=== PATIENT | female | born 1970 | race Caucasian/White ===

== ENCOUNTER 2020-09-22 22:58 | Emergency (ER) | payer OTHER ==
[~2020-09-22] VITALS: Ht 162.6 cm; Wt 54.9 kg
[2020-09-22 23:06] VITALS: BP 130/86
--- NOTE | 2020-09-22 23:06 | NUR ---
TO BED AMBULATORY
[2020-09-22] MEDS ORDERED: KETOROLAC 15 MG/ML VIAL IVP ONE (23:30)
[2020-09-22] MEDS ORDERED: NACL 0.9% 1,000 ML IV ONE (23:30)
--- NOTE | 2020-09-22 23:34 | NUR ---
50/F COMPLAINING OF RIGHT SIDE ABDOMINAL PAIN RADIATING TO RIGHT FLANK 01/05. PT WITH NASUEA BUT DENIES ANY VOMITING. PT LAST BM WAS 8 DAYS AGO. PT ALSO HAD MULTIPLE HERNIA REPAIRS LAST JULY. PMH: HTN, HLD, DM, SZ, HERNIA REPAIR ALLERGY: DICOFLENAC, RIZATRIPTAN
[2020-09-22 23:38] LABS: BASOPHILS % (AUTO) 0.8 % (0.0-2.0); EOSINOPHILS # (AUTO) 0.1 K/uL (0-0.4); EOSINOPHILS % (AUTO) 2.2 % (0.0-4.0); HEMATOCRIT 37.6 % (36-48); HEMOGLOBIN 12.6 g/dL (12.0-16.0); LYMPHOCYTES # (AUTO) 2.8 K/uL (2.5-16.5); LYMPHOCYTES % (AUTO) 44.2 % (20.5-51.1); MEAN CORPUSCULAR HEMOGLOBIN 29 pg (27-31); MEAN CORPUSCULAR HGB CONC 34 g/dL (33-37); MEAN CORPUSCULAR VOLUME 86.9 fL (80-94); MONOCYTES # (AUTO) 0.7 K/uL (0.8-1.0); MONOCYTES % (AUTO) 10.4 % (1.7-9.3); NEUTROPHILS # (AUTO) 2.7 K/uL (1.8-7.7); NEUTROPHILS % (AUTO) 42.4 % (42.2-75.2); PLATELET COUNT (AUTO) 268 K/uL (140-450); RED BLOOD CELL COUNT(AUTO) 4.32 MIL/uL (4.20-5.40); RED CELL DISTRIBUTION WIDTH 13.5 % (11.6-13.7); WHITE BLOOD COUNT (AUTO) 6.3 K/uL (4.8-10.8)
--- NOTE | 2020-09-22 23:52 | NUR ---
PT TAKEN TO CT
[2020-09-22 23:54] LABS: ALBUMIN 4.3 g/dL (3.4-5.0); ANION GAP 12.5 (8-16); CARBON DIOXIDE 26.3 mmol/L (21-32); CREATININE 0.8 mg/dL (0.6-1.3); POTASSIUM 3.8 mmol/L (3.5-5.1); TOTAL BILIRUBIN 0.3 mg/dL (0.0-1.0)
--- NOTE | 2020-09-23 | NUR ---
PT BACK FROM CT
--- NOTE | 2020-09-23 00:44 | NUR ---
covering for primary RN Melvin for lunch break. pt currently laying down in high fowlers position. does not appear to be in any distress. family member at bedside.
--- NOTE | 2020-09-23 00:45 | NUR ---
ambulated to restroom to attempt to give urine specimen.
--- NOTE | 2020-09-23 01:00 | NUR ---
pt still unable to urine. Dr. Whalen made aware.
--- NOTE | 2020-09-23 01:08 | NUR ---
performed urinary straight catheterization with 8fr catheter via the sterile procedure. output of 100ml of cloudy yellow urine. pt tolerated well.
--- NOTE | 2020-09-23 01:12 | NUR ---
Licha RN at bedside for improvement specialist during urinary straight catheterization.
[2020-09-23 01:16] LABS: APPEARANCE,URINE SL CLOUDY (CLEAR); BILIRUBIN,URINE NEGATIVE (NEGATIVE); BLOOD, URINE NEGATIVE (NEGATIVE); COLOR,URINE ORANGE (YELLOW); LEUKOCYTE ESTERASE ,URINE NEGATIVE (NEGATIVE); NITRITE, URINE POSITIVE (NEGATIVE); PH,URINE 7.5 (5.0-9.0); UGLUCOSE NEGATIVE (NEGATIVE)
[2020-09-23 01:24] LABS: RBC,URINE 0-5 /HPF (0-5); WBC,URINE 0-5 /HPF (0-5)
[2020-09-23] MEDS ORDERED: CEPH-588 PO (01:45)
[2020-09-23] MEDS ORDERED: PYR100 PO (01:46)
[2020-09-23 02:06] VITALS: BP 134/71
--- NOTE | 2020-09-23 02:06 | NUR ---
Patient discharged with v/s stable. Written and verbal after care instructions given and explained. Patient alert, oriented and verbalized understanding of instructions. Ambulatory with by FAMILY. All questions addressed prior to discharge. ID band AND IV ACCESS removed. Patient advised to follow up with PMD. Rx of KEFLEX, PYRIDIUM given. Patient educated on indication of medication including possible reaction and side effects. Opportunity to ask questions provided and answered.
== END 2020-09-23 02:06 | disposition home or self-care (01) ==
LOC: MED 22:58
DX: N12 Tubulo-interstitial nephritis, not specified as acute or chronic (principal)
CPT/HCPCS: 36415; 74176; 80053; 81001; 83690; 85025; 87086; 96361; 96374; 99283; J1885; J7030

== ENCOUNTER 2021-09-01 16:04 | Emergency (ER) | payer OTHER ==
[~2021-09-01] VITALS: Ht 152.4 cm; Wt 49.9 kg
[~2021-09-01 16:04] MED LIST: CEPH-588 PO; PYR100 PO
[2021-09-01 16:19] VITALS: BP 118/51
--- NOTE | 2021-09-01 17:07 | NUR ---
C/O HEADACHE X 3 WEEKS, URINARY BURNING SENSATION,7/10 LOWER ABD PAIN , DYSURIA X 4 DAYS. LAST SEIZURE 08/05/21. BLOOD SUGAR 92 AT THIS TIME. PMH: DM, HLD, IRVING
--- NOTE | 2021-09-01 17:11 | NUR ---
Patient being evaluated by CARY WOOD at [facility].
[2021-09-01 17:12] LABS: BILIRUBIN,URINE NEGATIVE (NEGATIVE); BLOOD, URINE NEGATIVE (NEGATIVE); COLOR,URINE YELLOW (YELLOW); LEUKOCYTE ESTERASE ,URINE 1+ (NEGATIVE); NITRITE, URINE NEGATIVE (NEGATIVE); UGLUCOSE NEGATIVE (NEGATIVE)
[2021-09-01 17:15] LABS: APPEARANCE,URINE HAZY (CLEAR)
[2021-09-01 17:34] LABS: RBC,URINE NONE SEEN /HPF (0-5)
[2021-09-01] MEDS ORDERED: ACETAMINOPHEN EXTRA STRENGTH 500 MG TAB PO ONE (17:50)
[2021-09-01 18:12] LABS: BASOPHILS % (AUTO) 0.7 % (0.0-2.0); EOSINOPHILS # (AUTO) 0.1 K/uL (0-0.4); EOSINOPHILS % (AUTO) 2.1 % (0.0-4.0); HEMATOCRIT 39.6 % (36-48); LYMPHOCYTES % (AUTO) 41.1 % (20.5-51.1); MEAN CORPUSCULAR HEMOGLOBIN 29 pg (27-31); MEAN CORPUSCULAR HGB CONC 33 g/dL (33-37); MEAN CORPUSCULAR VOLUME 87.8 fL (80-94); MONOCYTES # (AUTO) 0.5 K/uL (0.8-1.0); MONOCYTES % (AUTO) 10.9 % (1.7-9.3); NEUTROPHILS # (AUTO) 2.2 K/uL (1.8-7.7); NEUTROPHILS % (AUTO) 45.2 % (42.2-75.2); PLATELET COUNT (AUTO) 307 K/uL (140-450); RED BLOOD CELL COUNT(AUTO) 4.52 MIL/uL (4.20-5.40); RED CELL DISTRIBUTION WIDTH 13.8 % (11.6-13.7); WHITE BLOOD COUNT (AUTO) 4.9 K/uL (4.8-10.8)
[2021-09-01 18:34] LABS: ALBUMIN 4.1 g/dL (3.4-5.0); ANION GAP 12.8 (8-16); CARBON DIOXIDE 25.3 mmol/L (21-32); CREATININE 0.7 mg/dL (0.6-1.3); POTASSIUM 4.1 mmol/L (3.5-5.1); TOTAL BILIRUBIN 0.4 mg/dL (0.0-1.0)
[2021-09-01] MEDS ORDERED: cephALEXin 500 MG CAP PO ONE (19:00)
--- NOTE | 2021-09-01 19:11 | NUR ---
Provider at bedside
--- NOTE | 2021-09-01 19:44 | NUR ---
PT RETURN FROM CT (CODE BRAIN). TELENEURO INTIATED PER DR. Eva TENORIO
--- NOTE | 2021-09-01 20:00 | NUR ---
ASSISTED TO BR VIA W/C. RETURNED TO BED AND MADE COMFORTABLE
[2021-09-01] MEDS ORDERED: KETOROLAC 15 MG/ML VIAL IVP ONE (20:05)
[2021-09-01] MEDS ORDERED: CEPH-588 PO (20:59)
[2021-09-01] MEDS ORDERED: ONDA-188 PO (20:59)
[2021-09-01] MEDS ORDERED: diphenhydrAMINE 50 MG/ML VIAL IVP ONE (21:00)
[2021-09-01] MEDS ORDERED: METOCLOPRAMIDE 10 MG/2 ML INJ VIAL IVP ONE (21:00)
[2021-09-01] MEDS ORDERED: DEXAMETHASONE 10 MG/ML VIAL IVP ONE (21:00)
[2021-09-01 22:00] VITALS: BP 138/84
--- NOTE | 2021-09-01 22:00 | NUR ---
Patient discharged with v/s stable. Written and verbal after care instructions given and explained. Patient verbalized understanding. Ambulatory with steady gait. All questions addressed prior to discharge. Advised to follow up with PMD.
== END 2021-09-01 22:00 | disposition home or self-care (01) ==
LOC: MED 16:04
DX: G43.909 Migraine, unspecified, not intractable, without status migrainosus (principal); N39.0 Urinary tract infection, site not specified; E11.9 Type 2 diabetes mellitus without complications; I10 Essential (primary) hypertension; E78.00 Pure hypercholesterolemia, unspecified; Z88.6 Allergy status to analgesic agent; Z88.8 Allergy status to other drugs, medicaments and biological substances
CPT/HCPCS: 36415; 70450; 70496; 70498; 80053; 81001; 85025; 87086; 96374; 96375; 99284; J1100; J1200; J1885; J2765; Q9967

== ENCOUNTER 2021-09-19 10:16 | Emergency (ER) | payer OTHER ==
[~2021-09-19] VITALS: Ht 162.6 cm; Wt 53.1 kg
[~2021-09-19 10:16] MED LIST changes: +ONDA-188 PO
[2021-09-19 10:20] VITALS: BP 126/85
[2021-09-19] MEDS: PHENAZOPYRIDINE 100 MG TAB PO ONE (11:20)
[2021-09-19] MEDS: KETOROLAC 30 MG/ML VIAL IM ONE (11:23)
[2021-09-19 11:27] LABS: BASOPHILS % (AUTO) 0.8 % (0.0-2.0); EOSINOPHILS # (AUTO) 0.1 K/uL (0-0.4); EOSINOPHILS % (AUTO) 1.6 % (0.0-4.0); HEMATOCRIT 38.3 % (36-48); HEMOGLOBIN 12.8 g/dL (12.0-16.0); LYMPHOCYTES # (AUTO) 1.6 K/uL (2.5-16.5); LYMPHOCYTES % (AUTO) 34.5 % (20.5-51.1); MEAN CORPUSCULAR HEMOGLOBIN 29 pg (27-31); MEAN CORPUSCULAR HGB CONC 33 g/dL (33-37); MEAN CORPUSCULAR VOLUME 87.8 fL (80-94); MONOCYTES # (AUTO) 0.6 K/uL (0.8-1.0); MONOCYTES % (AUTO) 11.7 % (1.7-9.3); NEUTROPHILS # (AUTO) 2.4 K/uL (1.8-7.7); NEUTROPHILS % (AUTO) 51.4 % (42.2-75.2); PLATELET COUNT (AUTO) 220 K/uL (140-450); RED BLOOD CELL COUNT(AUTO) 4.37 MIL/uL (4.20-5.40); RED CELL DISTRIBUTION WIDTH 14.4 % (11.6-13.7); WHITE BLOOD COUNT (AUTO) 4.7 K/uL (4.8-10.8)
[2021-09-19 11:38] LABS: CARBON DIOXIDE 26.5 mmol/L (21-32); CREATININE 0.9 mg/dL (0.6-1.3); POTASSIUM 4.5 mmol/L (3.5-5.1)
[2021-09-19 11:56] LABS: ALBUMIN 4.1 g/dL (3.4-5.0); TOTAL BILIRUBIN 0.3 mg/dL (0.0-1.0)
[2021-09-19 13:01] LABS: BILIRUBIN,URINE NEGATIVE (NEGATIVE); BLOOD, URINE NEGATIVE (NEGATIVE); COLOR,URINE YELLOW (YELLOW); LEUKOCYTE ESTERASE ,URINE 2+ (NEGATIVE); NITRITE, URINE POSITIVE (NEGATIVE); PH,URINE 7.5 (5.0-9.0); UGLUCOSE TRACE (NEGATIVE)
[2021-09-19 13:18] LABS: APPEARANCE,URINE HAZY (CLEAR)
[2021-09-19 13:23] LABS: RBC,URINE 0-5 /HPF (0-5); URINE AMORPHOUS URATE 1+ /HPF (None Seen)
[2021-09-19] MEDS ORDERED: PYR100 PO (13:38)
[2021-09-19] MEDS ORDERED: CEPH-588 PO (13:38)
[2021-09-19 13:55] VITALS: BP 126/85
== END 2021-09-19 13:55 | disposition home or self-care (01) ==
LOC: MED 10:16
DX: N39.0 Urinary tract infection, site not specified (principal); E11.9 Type 2 diabetes mellitus without complications; I10 Essential (primary) hypertension; Z79.899 Other long term (current) drug therapy; Z88.1 Allergy status to other antibiotic agents; Z88.8 Allergy status to other drugs, medicaments and biological substances; Z98.890 Other specified postprocedural states; Z90.710 Acquired absence of both cervix and uterus; Z86.73 Personal history of transient ischemic attack (TIA), and cerebral infarction without residual deficits
CPT/HCPCS: 36415; 80053; 81001; 85025; 87086; 96372; 99283; J1885

== ENCOUNTER 2021-09-23 14:26 | Emergency (ER) | payer OTHER ==
[~2021-09-23] VITALS: Ht 149.9 cm; Wt 52.8 kg
[2021-09-23 15:06] VITALS: BP 99/64
--- NOTE | 2021-09-23 15:10 | NUR ---
PT AMBULATED WITH ASSISTED TO BED 11.
--- NOTE | 2021-09-23 15:14 | NUR ---
Patient being evaluated by DANIELE at bedside.
--- NOTE | 2021-09-23 15:21 | NUR ---
CODE STROKE CALLED BY DR SANABRIA. CT CALLED
--- NOTE | 2021-09-23 15:27 | NUR ---
Patient taken for CT-code brain via jerri on homebirth midwife, accompanied by VALERIA Delgado and Jessica civil laboratory technician.
[2021-09-23] MEDS ORDERED: NACL 0.9% 1,000 ML IV ONE (15:30)
--- NOTE | 2021-09-23 15:35 | NUR ---
PT BACK FROM CT AND CONNECTED TO MONITOR
--- NOTE | 2021-09-23 15:40 | NUR ---
RAD AT BEDSIDE
--- NOTE | 2021-09-23 15:44 | NUR ---
CINDY MIRANDA SAMPLE COLLECTED AND HANDED TO RETAIL PRESENTATION SPECIALIST
[2021-09-23 15:54] LABS: BASOPHILS % (AUTO) 0.5 % (0.0-2.0); EOSINOPHILS # (AUTO) 0.1 K/uL (0-0.4); EOSINOPHILS % (AUTO) 2.7 % (0.0-4.0); HEMOGLOBIN 11.3 g/dL (12.0-16.0); LYMPHOCYTES # (AUTO) 2.3 K/uL (2.5-16.5); LYMPHOCYTES % (AUTO) 48.1 % (20.5-51.1); MEAN CORPUSCULAR HEMOGLOBIN 29 pg (27-31); MEAN CORPUSCULAR HGB CONC 33 g/dL (33-37); MONOCYTES # (AUTO) 0.5 K/uL (0.8-1.0); MONOCYTES % (AUTO) 10.6 % (1.7-9.3); NEUTROPHILS # (AUTO) 1.8 K/uL (1.8-7.7); NEUTROPHILS % (AUTO) 38.1 % (42.2-75.2); PLATELET COUNT (AUTO) 211 K/uL (140-450); RED BLOOD CELL COUNT(AUTO) 3.86 MIL/uL (4.20-5.40); RED CELL DISTRIBUTION WIDTH 14.4 % (11.6-13.7); WHITE BLOOD COUNT (AUTO) 4.8 K/uL (4.8-10.8)
--- NOTE | 2021-09-23 16:07 | NUR ---
51 Y/O FEMALE BIB DAUGHTER C/O GENERAL WEAKNESS, SLOWLY SPEAKING , RIGHT EYE PAIN 10/10 RADIATES TO HEAD DESCRIBES THROBBING. PT STATES PAIN AND WEAKNESS STARTED AT 7 AM TODAY. BLOOD SUGAR 86 AT THIS TIME. DENIES FEVER/CHILLS. DENIES N/V/D. PMH: HTN, HLD, DM, STROKE FEB 2021 ALLERGIES: DICLOFENAC, RIZATRIPTAN
[2021-09-23 16:12] LABS: PROTHROMBIN TIME 11.5 secs (10.8-13.4)
[2021-09-23 16:17] LABS: ALBUMIN 3.7 g/dL (3.4-5.0); ASPARTATE AMINOTRANSFERASE 26 U/L (15-37); CARBON DIOXIDE 27.8 mmol/L (21-32); CHLORIDE 101 mmol/L (98-107); CREATININE 0.6 mg/dL (0.6-1.3); GFR ARICAN-AMERICAN 135 mL/min (>90); GLUCOSE 94 mg/dL (74-106); POTASSIUM 3.8 mmol/L (3.5-5.1); SODIUM SERUM 136 mmol/L (136-145); TOTAL BILIRUBIN 0.3 mg/dL (0.0-1.0); UREA NITROGEN, BLOOD 13 mg/dL (7-18)
--- NOTE | 2021-09-23 16:36 | NUR ---
GAVE REPORT TO VALERIA GLASGOW IN [facility] FOR PENDING TRANSFER.
--- NOTE | 2021-09-23 16:37 | NUR ---
PT RESTING IN BED, VISIBLE EQUAL RISE AND FALL OF CHEST, VSS, WILL CONTINUE TO MONITOR. PT DAUGHTER AT BEDSIDE.
[2021-09-23 17:15] VITALS: BP 98/51
--- NOTE | 2021-09-23 17:16 | NUR ---
Patient to be transferred to [facility]. Is being transferred due to HIGHER LEVEL OF CARE. Receiving facility has accepting physician and available space. ER physician has signed transfer form. Patient or responsible constitution party has agreed to transfer and signed form. Patient belongings inventoried and will be sent with patient. Copy of nursing notes, lab reports, EKG, Physicians Orders and X-rays to be sent with patient. Report called to VALERIA CASAREZ at receiving facility. [facility] ambulance service has been called for transfer. ETA is 20MINUTES.
== END 2021-09-23 17:16 | disposition short-term general hospital (02) ==
LOC: MED 14:26
DX: I63.9 Cerebral infarction, unspecified (principal); Z20.822 Contact with and (suspected) exposure to COVID-19; H49.21 Sixth [abducent] nerve palsy, right eye
CPT/HCPCS: 36415; 70450; 71045; 80053; 84484; 85025; 85610; 85730; 86886; 86900; 86901; 87426; 93005; 96360; 99285; J7030

== ENCOUNTER 2022-04-25 15:18 | Emergency (ER) | payer OTHER ==
[~2022-04-25] VITALS: Ht 154.9 cm; Wt 63.5 kg
[2022-04-25 15:30] VITALS: BP 138/73
[2022-04-25 16:32] LABS: BASOPHILS % (AUTO) 0.6 % (0.0-2.0); EOSINOPHILS % (AUTO) 0.2 % (0.0-4.0); LYMPHOCYTES # (AUTO) 1.6 K/uL (2.5-16.5); LYMPHOCYTES % (AUTO) 54.2 % (20.5-51.1); MEAN CORPUSCULAR HEMOGLOBIN 29 pg (27-31); MEAN CORPUSCULAR HGB CONC 34 g/dL (33-37); MEAN CORPUSCULAR VOLUME 86.7 fL (80-94); MONOCYTES # (AUTO) 0.4 K/uL (0.8-1.0); MONOCYTES % (AUTO) 13.5 % (1.7-9.3); NEUTROPHILS # (AUTO) 0.9 K/uL (1.8-7.7); NEUTROPHILS % (AUTO) 31.5 % (42.2-75.2); PLATELET COUNT (AUTO) 396 K/uL (140-450); RED CELL DISTRIBUTION WIDTH 14.8 % (11.6-13.7)
[2022-04-25 16:56] LABS: ANION GAP 11.5 (8-16); CARBON DIOXIDE 29.9 mmol/L (21-32); CREATININE 0.6 mg/dL (0.6-1.3); POTASSIUM 4.4 mmol/L (3.5-5.1)
[2022-04-25] MEDS ORDERED: IBUP-2213 PO (17:05)
[2022-04-25] MEDS ORDERED: BENZ150C2 PO (17:05)
[2022-04-25] MEDS ORDERED: ALBU0.0912 IH (17:05)
--- NOTE | 2022-04-25 17:34 | NUR ---
Patient discharged with v/s stable. Written and verbal after care instructions ABOUT VIRAL ILLNESS given and explained. Patient alert, oriented and verbalized understanding of instructions. Ambulatory with steady gait. All questions addressed prior to discharge. ID band removed. Patient advised to follow up with PMD. Rx of ALBUTEROL, BENzONATATE, IBUPROFEN given. Patient educated on indication of medication including possible reaction and side effects. Opportunity to ask questions provided and answered.
== END 2022-04-25 17:33 | disposition home or self-care (01) ==
LOC: MED 15:18
DX: J20.9 Acute bronchitis, unspecified (principal); Z20.822 Contact with and (suspected) exposure to COVID-19; B34.9 Viral infection, unspecified; E11.9 Type 2 diabetes mellitus without complications; I10 Essential (primary) hypertension; Z79.899 Other long term (current) drug therapy; Z86.73 Personal history of transient ischemic attack (TIA), and cerebral infarction without residual deficits; Z88.8 Allergy status to other drugs, medicaments and biological substances
CPT/HCPCS: 36415; 71045; 80048; 84484; 85025; 93005; 99285

== ENCOUNTER 2022-04-28 11:22 | Emergency (ER) | payer OTHER ==
[~2022-04-28] VITALS: Ht 152.4 cm; Wt 51.3 kg
[~2022-04-28 11:22] MED LIST changes: +ALBU0.0912 IH; +BENZ150C2 PO; +IBUP-2213 PO
[2022-04-28 11:28] VITALS: BP 122/70
--- NOTE | 2022-04-28 11:31 | NUR ---
FLU AND RUBEN SWABS COLLECTED
[2022-04-28] MEDS ORDERED: ALBU0.0912 IH (11:55)
--- NOTE | 2022-04-28 12:08 | NUR ---
Patient discharged with v/s stable. Written and verbal after care instructions ABOUT COUGH given and explained. Patient alert, oriented and verbalized understanding of instructions. Ambulatory with steady gait. All questions addressed prior to discharge. ID band removed. Patient advised to follow up with PMD. Rx of ALBUTEROL given. Patient educated on indication of medication including possible reaction and side effects. Opportunity to ask questions provided and answered.
== END 2022-04-28 12:08 | disposition home or self-care (01) ==
LOC: MED 11:22
DX: J40 Bronchitis, not specified as acute or chronic (principal); Z20.822 Contact with and (suspected) exposure to COVID-19; Z88.8 Allergy status to other drugs, medicaments and biological substances
CPT/HCPCS: 99283

== ENCOUNTER 2022-07-11 16:37 | Emergency (ER) | payer OTHER ==
[~2022-07-11] VITALS: Ht 154.9 cm; Wt 77.1 kg
[2022-07-11 16:48] VITALS: BP 126/83
--- NOTE | 2022-07-11 16:57 | NUR ---
PT SWABBED FOR COVID, FLU, AND STREP
--- NOTE | 2022-07-11 17:10 | NUR ---
52/F WALKED IN C/O SORE THROAT RADIATING TO LEFT JAW ONSET 3 DAYS ACCOMPANIED BY COUGH. PMH: HTN, DM, SZ
[2022-07-11] MEDS ORDERED: PROM118S5 PO (19:28)
[2022-07-11] MEDS ORDERED: ACET-1195 PO (19:28)
[2022-07-11] MEDS ORDERED: BENZ-300 PO (19:28)
[2022-07-11] MEDS ORDERED: ACETAMINOPHEN 325 MG TAB PO ONE (19:30)
[2022-07-11 20:16] VITALS: BP 132/78
--- NOTE | 2022-07-11 20:16 | NUR ---
Patient discharged with v/s stable. Written and verbal after care instructions given and explained. Patient alert, oriented and verbalized understanding of instructions. Ambulatory with to car. All questions addressed prior to discharge. ID band removed. Patient advised to follow up with PMD. Rx of Acetaminophen/cepacol/preomethazine-dm given. Patient educated on indication of medication including possible reaction and side effects. Opportunity to ask questions provided and answered.
== END 2022-07-11 20:16 | disposition home or self-care (01) ==
LOC: MED 16:37
DX: J06.9 Acute upper respiratory infection, unspecified (principal); Z20.822 Contact with and (suspected) exposure to COVID-19; J45.909 Unspecified asthma, uncomplicated; Z88.5 Allergy status to narcotic agent; Z88.8 Allergy status to other drugs, medicaments and biological substances
CPT/HCPCS: 71045; 87081; 99284

== ENCOUNTER 2022-07-26 08:26 | Emergency (ER) | payer OTHER ==
[~2022-07-26 08:26] MED LIST changes: +ACET-1195 PO; +BENZ-300 PO; +PROM118S5 PO
--- NOTE | 2022-07-26 08:38 | NUR ---
CALLED TO TRIAGE NO RESPONSE
--- NOTE | 2022-07-26 08:48 | NUR ---
CALLED TO TRIAGE NO RESPONSE
--- NOTE | 2022-07-26 08:58 | NUR ---
CALLED TO TRIAGE NO RESPONSE, PATIENT LEFT WITHOUT BEING SEEN BY DR. MELVIN. NO FURTHER CARE PROVIDED FOR PATIENT.
== END 2022-07-26 08:58 | disposition left against medical advice (07) ==
LOC: MED 08:26
DX: M79.10 Myalgia, unspecified site (principal); Z53.21 Procedure and treatment not carried out due to patient leaving prior to being seen by health care provider

== ENCOUNTER 2022-09-05 21:13 | Inpatient (IN) | payer OTHER ==
[~2022-09-05] VITALS: Ht 160 cm; Wt 54.4 kg
[2022-09-05 21:18] VITALS: BP 149/84
--- NOTE | 2022-09-05 21:27 | NUR ---
52 F, ambulatory from home with c/o N/V, headache, and tremors x1 day. States she has not taken seizure meds x3 days. PMH: epilepsy, strokes, DM, HTN, high cholesterol.
--- NOTE | 2022-09-05 21:32 | NUR ---
MD Sepulveda assessing pt in triage rm at this time.
--- NOTE | 2022-09-05 21:40 | NUR ---
CODE STROKE INITIATED PER DR. MOLINA
--- NOTE | 2022-09-05 21:40 | NUR ---
pt didnt take medication for 3 days beause she forgot to take them when she was at one of [facility] daughter house. pt started vominting at home few times, pain presure in the head 01/05. Per daughter pt sharted saking and feel weak in arm and daughter said has some facial difrential not looking normal. pt is turkmen speaker
--- NOTE | 2022-09-05 21:41 | NUR ---
BS; 114 MD Sepulveda aware. Code stroke initiated.
--- NOTE | 2022-09-05 22:00 | NUR ---
Pt taken to CT for imaging.
[2022-09-05 22:51] LABS: BASOPHILS % (AUTO) 0.5 % (0.0-2.0); EOSINOPHILS % (AUTO) 0.2 % (0.0-4.0); LYMPHOCYTES # (AUTO) 1.7 K/uL (2.5-16.5); LYMPHOCYTES % (AUTO) 19.3 % (20.5-51.1); MEAN CORPUSCULAR HEMOGLOBIN 30 pg (27-31); MEAN CORPUSCULAR HGB CONC 33 g/dL (33-37); MEAN CORPUSCULAR VOLUME 88.3 fL (80-94); MONOCYTES # (AUTO) 0.9 K/uL (0.8-1.0); NEUTROPHILS # (AUTO) 6.3 K/uL (1.8-7.7); PLATELET COUNT (AUTO) 273 K/uL (140-450); RED BLOOD CELL COUNT(AUTO) 4.42 MIL/uL (4.20-5.40); RED CELL DISTRIBUTION WIDTH 13.8 % (11.6-13.7)
[2022-09-05 23:11] LABS: PROTHROMBIN TIME 10.6 secs (10.8-13.4)
--- NOTE | 2022-09-05 23:11 | NUR ---
TELENEURO REQUEST INITIATED PER DR. DOWNING
[2022-09-05 23:24] LABS: ALBUMIN 4.2 g/dL (3.4-5.0); ANION GAP 12.7 (8-16); ASPARTATE AMINOTRANSFERASE 33 U/L (15-37); CARBON DIOXIDE 29.3 mmol/L (21-32); CHLORIDE 105 mmol/L (98-107); CREATININE 0.6 mg/dL (0.6-1.3); GFR ARICAN-AMERICAN 134 mL/min (>90); GLUCOSE 141 mg/dL (74-106); LIPASE 171 U/L (73-393); SODIUM SERUM 143 mmol/L (136-145); TOTAL BILIRUBIN 0.4 mg/dL (0.0-1.0); UREA NITROGEN, BLOOD 15 mg/dL (7-18)
--- NOTE | 2022-09-05 23:26 | NUR ---
TELENEURO DR. QUINN SPEAKING WITH PT
[2022-09-05 23:30] LABS: APPEARANCE,URINE SL CLOUDY (CLEAR); BILIRUBIN,URINE NEGATIVE (NEGATIVE); BLOOD, URINE NEGATIVE (NEGATIVE); COLOR,URINE YELLOW (YELLOW); LEUKOCYTE ESTERASE ,URINE NEGATIVE (NEGATIVE); NITRITE, URINE NEGATIVE (NEGATIVE); PH,URINE 8.5 (5.0-9.0); UGLUCOSE NEGATIVE (NEGATIVE)
--- NOTE | 2022-09-05 23:30 | NUR ---
PT DAUGHTER LA AT THE BED SIDE.
--- NOTE | 2022-09-05 23:35 | NUR ---
[facility] WHO SPOKE WITH DR. DOWNING
[2022-09-06] MEDS ORDERED: ZOLPIDEM 5 MG TAB PO PRN (00:40)
[2022-09-06] MEDS ORDERED: MORPHINE SULFATE 4 MG/ML SYR IVP PRN (00:40)
[2022-09-06] MEDS ORDERED: IBUPROFEN 400 MG TAB PO PRN (00:40)
[2022-09-06] MEDS ORDERED: POTASSIUM CHLORIDE 10 MEQ TABER PO PRN (00:40)
[2022-09-06] MEDS ORDERED: ONDANSETRON 4 MG/2 ML VIAL IVP PRN (00:40)
[2022-09-06] MEDS ORDERED: KCL 20 MEQ IN 100 mL PREMIX 200 ML IV PRN (00:40)
[2022-09-06] MEDS ORDERED: LORazepam 1 MG TAB PO PRN (00:40)
[2022-09-06] MEDS ORDERED: MAG SULF 2000 MG/WATER PREMIX 50 ML IV PRN (00:40)
[2022-09-06] MEDS ORDERED: levETIRAcetam 1,000 MG in NACL 0.9% 100 ML IV ONE (00:55)
--- NOTE | 2022-09-06 01:00 | NUR ---
PT DAUGHTER LEFT AND WILL FOLLOW UP IN THE MORNING .
[2022-09-06] MEDS ORDERED: levETIRAcetam 100 MG/ML VIAL IV ONE (01:31)
[2022-09-06] MEDS: OXcarbazepine 150 MG TAB PO SCH ×3 (01:54→20:03)
[2022-09-06] MEDS: NACL 0.9% 1,000 ML IV SCH ×3 (01:55→18:27)
[2022-09-06] MEDS ORDERED: ATOR20TA PO (04:16)
[2022-09-06] MEDS ORDERED: LORA10TA19 PO (04:16)
[2022-09-06] MEDS ORDERED: LINA145C PO (04:16)
[2022-09-06] MEDS ORDERED: DULO60EC1 PO (04:16)
[2022-09-06] MEDS ORDERED: KEP500 PO (04:16)
[2022-09-06] MEDS ORDERED: ATA25 PO (04:16)
[2022-09-06] MEDS ORDERED: LUBI24SG4 PO (04:16)
[2022-09-06] MEDS ORDERED: OXCA300T PO (04:16)
--- NOTE | 2022-09-06 08:10 | NUR ---
Patient will be admitted to care of dr godwin. Admited to tele. Will go to room 105a. Belongings list completed. Report to hardik stoney.
--- NOTE | 2022-09-06 08:15 | NUR ---
RECEIVED PATIENT FROM ED. PATIENT ABLE TO AMBULATE, AWAKE AND ALERT. ASSESSMENT OF PATIENT STARTED. PLAN OF CARE ESTABLISHED.
[2022-09-06] MEDS: ASPIRIN 81 MG TAB.CHEW PO SCH (09:09)
[2022-09-06] MEDS: DOCUSATE SODIUM 100 MG GELCAP PO SCH (09:10)
--- NOTE | 2022-09-06 09:15 | NUR ---
PATIENT REPORTS OF HEADACHE. TYLENOL GIVEN.
[2022-09-06] MEDS: ACETAMINOPHEN 325 MG TAB PO PRN ×2 (09:20→18:41)
--- NOTE | 2022-09-06 09:34 | NUR ---
PATIENT HAS BEEN SCREENED AND CATEGORIZED MODERATE NUTRITION RISK. PATIENT WILL BE SEEN WITHIN 3-5 DAYS OF ADMISSION. REVIEWED BY CHANDANA OVIEDO RD
[2022-09-06 12:00] VITALS: BP 117/55
[2022-09-06 16:00] VITALS: BP 114/57
--- NOTE | 2022-09-06 18:00 | NUR ---
RECEIVED PATIENT FROM ED. PATIENT ABLE TO AMBULATE, AWAKE AND ALERT. ASSESSMENT OF PATIENT STARTED. PLAN OF CARE ESTABLISHED. Addendum: 09/06/22 at 1854 by PAM HUTCHINSON RN WRONG TIME INPUT.
--- NOTE | 2022-09-06 18:00 | NUR ---
PATIENT COMPLAINS OF HEADACHE. TYLENOL GIVEN.
--- NOTE | 2022-09-06 19:20 | NUR ---
RECEIVED PT IN AWAKE, ALERT AND ORIENTED X4. DENIES PAIN. DENIES SHORTNESS OF BREATH. SKIN WARM AND DRY TO TOUCH. IVF INFUSING WELL ORDERED. SAFETY PRECAUTIONS IN PLACE, CALL LIGHT IN REACH.
--- NOTE | 2022-09-06 19:20 | NUR ---
ENDORSED PATIENT TO PM SHIFT FOR CONTINUATION OF CARE
[2022-09-06 20:00] VITALS: BP 94/49
[2022-09-07] VITALS: BP 105/59
[2022-09-07 04:00] VITALS: BP 95/44
--- NOTE | 2022-09-07 04:00 | NUR ---
VITAL SIGNS TAKEN AND DOCUMENTED. ASSISTED T THE BATHROOM AND BACK IN BED, MADE COMFORTABLE. VOIDED WITHOUT DIFFICULTY. CALL LIGHT PLACED WITHIN REACH.
[2022-09-07] MEDS: NACL 0.9% 1,000 ML IV SCH (04:04)
--- NOTE | 2022-09-07 06:29 | NUR ---
PATIENT IS ASLEEP. ALL NEEDS ATTENDED TO. NO DISTRESS NOTED. SAFETY PRECAUTIONS MAINTAINED DURING THE SHIFT, CALL LIGHT REMAINS WITHIN REACH.
[2022-09-07 07:00] LABS: BASOPHILS % (AUTO) 0.6 % (0.0-2.0); EOSINOPHILS # (AUTO) 0.1 K/uL (0-0.4); HEMATOCRIT 36.1 % (36-48); LYMPHOCYTES # (AUTO) 1.9 K/uL (2.5-16.5); LYMPHOCYTES % (AUTO) 35.4 % (20.5-51.1); MEAN CORPUSCULAR HEMOGLOBIN 29 pg (27-31); MEAN CORPUSCULAR HGB CONC 33 g/dL (33-37); MEAN CORPUSCULAR VOLUME 87.9 fL (80-94); MONOCYTES # (AUTO) 0.5 K/uL (0.8-1.0); MONOCYTES % (AUTO) 10.2 % (1.7-9.3); NEUTROPHILS # (AUTO) 2.8 K/uL (1.8-7.7); NEUTROPHILS % (AUTO) 52.8 % (42.2-75.2); PLATELET COUNT (AUTO) 242 K/uL (140-450); RED CELL DISTRIBUTION WIDTH 13.9 % (11.6-13.7); WHITE BLOOD COUNT (AUTO) 5.4 K/uL (4.8-10.8)
[2022-09-07 07:09] LABS: ANION GAP 10.1 (8-16); CREATININE 0.6 mg/dL (0.6-1.3); POTASSIUM 4.1 mmol/L (3.5-5.1)
--- NOTE | 2022-09-07 07:30 | NUR ---
RECEIVED REPORT FROM PLASMA PROCESSING TECHNICIAN. PT AWAKE IN BED, HOB ELEVATED. AOX4, ABLE TO VERBALIZE NEEDS. NO C/O PAIN, NO SOB ON ROOM AIR. WITH PERIPHERAL IV LFA 20G RUNNING NS AT 80CC/HR. PLAN OF CARE DISCUSSED.
[2022-09-07 08:00] VITALS: BP 125/61
--- NOTE | 2022-09-07 08:30 | NUR ---
WITH SOFT LARGE BM, CHIP CARE DONE Addendum: 09/07/22 at 1033 by Benjamin Shafer RN DISREGARD ABOVE NOTE
[2022-09-07] MEDS: ASPIRIN 81 MG TAB.CHEW PO SCH (08:43)
[2022-09-07] MEDS: OXcarbazepine 150 MG TAB PO SCH (08:43)
[2022-09-07] MEDS: DOCUSATE SODIUM 100 MG GELCAP PO SCH (08:43)
--- NOTE | 2022-09-07 09:10 | NUR ---
DUE MEDS GIVEN
[2022-09-07 12:00] VITALS: BP 152/72
--- NOTE | 2022-09-07 14:25 | NUR ---
Patient discharged with v/s stable. Written and verbal after care instructions given and explained. Patient verbalized understanding. Ambulatory with steady gait. All questions addressed prior to discharge. Advised to follow up with neurologist.
== END 2022-09-07 14:25 | disposition home or self-care (01) | DRG 53 ==
LOC: MED 21:13 → OBSVTOIN 09-06 00:42 → MTU 09-06 00:42
PROVIDERS: ADMIT Hospitalist; ATTEND Hospitalist
DX: G40.909 Epilepsy, unspecified, not intractable, without status epilepticus (principal); I69.351 Hemiplegia and hemiparesis following cerebral infarction affecting right dominant side; E11.9 Type 2 diabetes mellitus without complications; H57.02 Anisocoria; I10 Essential (primary) hypertension; E78.5 Hyperlipidemia, unspecified; J45.909 Unspecified asthma, uncomplicated; F41.9 Anxiety disorder, unspecified; F32.A Depression, unspecified; H02.402 Unspecified ptosis of left eyelid; Z20.822 Contact with and (suspected) exposure to COVID-19; Z88.8 Allergy status to other drugs, medicaments and biological substances; Z79.899 Other long term (current) drug therapy; Z79.2 Long term (current) use of antibiotics
CPT/HCPCS: 36415; 70450; 71045; 80048; 80053; 81003; 82948; 83690; 83735; 84484; 85025; 85610; 85730; 86886; 86900; 86901; 87081; 96365; 99291; J1953; Q0092; Q9967